=== PATIENT | female | born 1975 | race Caucasian/White ===

== ENCOUNTER 2025-08-27 16:00 | Emergency (ER) | payer SELFPAY ==
[2025-08-27 16:52] VITALS: TEMP 98.7
--- NOTE | 2025-08-27 18:14 | ERPHSYRPT ---
- History of Present Illness Time Seen by Provider: 08/27/25 17:50 Source: patient, family Patient Subjective Stated Complaint: Pt states "I fell off a ladder and landed on my left elbow." Triage Nursing Assessment: Pt prented alert and oriented x 3, skin pwd. Pt ambulates with an upright steady gait, able to speak in clear full sentences. Pt has pain noted to her left elbow, slight bruising noted, Timing/Duration: today Severity: moderate Allergies/Adverse Reactions: No Known Drug Allergies Allergy (Verified 08/27/25 16:52) Home Medications: Levothyroxine Sodium 75 mcg PO DAILY 08/27/25 [History] Hx Tetanus, Diphtheria Vaccination/Date Given: No Hx Influenza Vaccination/Date Given: No Hx Pneumococcal Vaccination/Date Given: No Immunizations Up to Date: No Travel Risk - International Travel Have you traveled outside of the country in past 3 weeks: No - Emerging Infectious Disease Are you exhibiting symptoms associated with any current EIDs: No - Review of Systems Constitutional: No Symptoms Eyes: No Symptoms Ears, Nose, & Throat: No Symptoms Respiratory: No Symptoms Cardiac: No Symptoms Abdominal/Gastrointestinal: No Symptoms Genitourinary Symptoms: No Symptoms Musculoskeletal: No Symptoms Skin: No Symptoms Neurological: No Symptoms Psychological: No Symptoms Endocrine: No Symptoms Hematologic/Lymphatic: No Symptoms Immunological/Allergic: No Symptoms All Other Systems: Reviewed and Negative - Past Medical History Pertinent Past Medical History: Yes Neurological History: No Pertinent History ENT History: No Pertinent History Cardiac History: No Pertinent History Respiratory History: No Pertinent History Endocrine Medical History: No Pertinent History, Hypothyroidism Musculoskeletal History: No Pertinent History GI Medical History: No Pertinent History History: No Pertinent History Psycho-Social History: No Pertinent History - Past Surgical History Past Surgical History: Yes Other Surgical History: c section - Female History Hx Last Menstrual Period: 08/06/2025 Hx Now: No - Social History Smoking Status: Never smoker Exposure to second hand smoke: No Drug Use: none - Social Determinants of Health Will the patient participate in the screening: Declined to provide - Nursing Vital Signs Nursing Vital Signs: Initial Vital Signs Temperature 98.7 F 08/27/25 16:46 Pulse Rate 86 08/27/25 16:46 Respiratory Rate 18 08/27/25 16:46 Blood Pressure 152/75 08/27/25 16:46 O2 Sat by Pulse Oximetry 99 08/27/25 16:46 Pain Scale Pain Intensity 8 - Physical Exam General Appearance: no apparent distress Eye Exam: PERRL/EOMI Ears, Nose, Throat Exam: normal ENT inspection Respiratory Exam: normal breath sounds Cardiovascular Exam: regular rate/rhythm Gastrointestinal/Abdomen Exam: soft, normal bowel sounds Extremity Exam: other (limited ROM of the left elbow due to pain the patient has motor or sensory deficits distally and in nurovasculalry intact distally ) Neurologic Exam: alert, oriented x 3 SpO2: 98 Ordered Tests: Active Orders 24 hr Category Date Time Status ELBOW (MINIMUM 3 VIEWS) Stat Exams 08/27/25 17:08 Completed Medication Summary Discontinued Medications Generic Name Dose Route Start Last Admin Trade Name Freq PRN Reason Stop Dose Admin Hydromorphone HCl 1 mg 08/27/25 18:09 08/27/25 18:21 Hydromorphone 1 Mg/1ml Inj IV 08/27/25 18:10 1 mg STAT ONE Administration Hydromorphone HCl Confirm 08/27/25 18:21 Hydromorphone 1 Mg/1ml Inj Administered 08/27/25 18:22 Dose 1 mg .ROUTE .STK-MED ONE Ondansetron HCl 4 mg 08/27/25 18:09 08/27/25 18:21 Ondansetron Hcl 4 Mg/2 Ml Vial IV 08/27/25 18:10 4 mg STAT ONE Administration Ondansetron HCl Confirm 08/27/25 18:20 Ondansetron Hcl 4 Mg/2 Ml Vial Administered 08/27/25 18:21 Dose 4 mg .ROUTE .STK-MED ONE - Progress Progress Note: Contusion to the right hand patient was seen and evaluated for her symptoms x- ray reveals buckle fracture over the humeral condyles. Radiology read is pending. Patient was given IV Dilaudid and Zofran for her discomfort. Patient and her family will confer appropriate follow-up here at [facility] or at [facility] 08/27/25 18:13 Patient was updated with the radiology reading results she will be placed on long-arm splint and was informed of the need for follow-up with her orthopedic surgeon of choice at [facility] she is agreeable she will be discharged home with opioid analgesia 08/27/25 19:18 - Departure Departure Disposition: Home Clinical Impression: Elbow fracture, left Condition: Stable Critical Care Time: No Referrals: SOPHIA CHEN, CHROME TANNING [employer]PERATOR [Primary Care Provider, UNKNOWN] - Follow up/PCP as directed Prescriptions: Hydrocodone/APAP 5/325 [Spencer 5/325 mg] 1 each PO Q6H PRN PRN #10 tablet NS MDD 4 PRN Reason: Pain
[2025-08-27] MEDS ORDERED: Zofran 4 MG/2 ML VIAL ONE (18:20)
[2025-08-27] MEDS: Zofran 4 MG/2 ML VIAL IV ONE (18:21)
[2025-08-27] MEDS ORDERED: Hydromorphone 1 mg/ml Injection ONE (18:21)
[2025-08-27] MEDS: Hydromorphone 1 mg/ml Injection IV ONE (18:21)
--- NOTE | 2025-08-27 18:55 | XRAY ---
CLINICAL HISTORY: pain COMPARISON: No prior studies available for comparison. TECHNIQUE: X-ray images of the left elbow were obtained in anteroposterior (AP), lateral, and oblique projections. FINDINGS: Bone Structure: There is a transverse non-displaced extra-articular fracture of the distal shaft of the left humerus. Joint Spaces: Joint spaces are preserved. No evidence of joint subluxation. Articular Surfaces: Articular surfaces are smooth and intact. No signs of osteophyte formation or subchondral sclerosis. Soft Tissues: No soft tissue calcifications or foreign bodies noted. Additional Findings: Positive anterior and posterior fat pad elevation, denoting joint effusion. No signs of degenerative changes, such as osteoarthritis or inflammatory arthropathy. IMPRESSION: 1. There is a transverse non-displaced extra-articular fracture of the distal shaft of the left humerus. 2. Positive anterior and posterior fat pad elevation, denoting joint effusion. Disclaimer: A subtle bone abnormality or fracture may not be readily apparent on X-rays; thus, clinical correlation and further imaging, including follow-up CT, MRI, or follow-up X-rays, are advised as needed. Electronically Signed by: Rolf Morales MD. (08/27/2025 18:52:51 EST)
[2025-08-27 19:47] VITALS: BP 123/63; PULSE 88; RESP 16; O2SAT 99
[2025-08-27] MEDS ORDERED: NORCO 5/325 MG ONE (19:53)
[2025-08-27] MEDS: NORCO 5/325 MG PO ONE (19:55)
== END 2025-08-27 19:57 | disposition home or self-care (01) ==
LOC: ED 16:00
DX: S42.325A Nondisplaced transverse fracture of shaft of humerus, left arm, initial encounter for closed fracture (principal); W11.XXXA Fall on and from ladder, initial encounter; Z79.891 Long term (current) use of opiate analgesic; Z79.899 Other long term (current) drug therapy